=== PATIENT | male | born 1980 | race Caucasian/White ===

== ENCOUNTER 2017-11-01 15:29 | Emergency (ER) | payer SELFPAY ==
[~2017-11-01 15:29] MED LIST: IBUP-232 PO; PENI500T PO
[2017-11-01 15:36] VITALS: BP 126/80; PULSE 69; RESP 18; TEMP 97.9; O2SAT 98
[2017-11-01] MEDS ORDERED: PROPARACAINE HCL 0.5% OPHT SOLN 15 ML BTL EACH EYE ONE (16:30)
--- NOTE | 2017-11-01 17:09 | PD ---
HPI Chief Complaint: Eye Problems/Injury Time Seen by Provider: 16:26 Travel History International Travel<30 days: No Contact w/Intl Traveler<30days: No Traveled to known affect area: No History of Present Illness HPI 37-year-old male here with foreign body sensation in left eye since yesterday. Patient reports he was cutting a hole through drywall when he felt something fly into his right eye. He irrigated the eye with water but the foreign body sensation remaining. He presents here today for evaluation. He denies eye pain , visual changes. Symptom severity is moderate. No alleviating factors. PFSH Past Medical History Anemia: Yes Asthma: Yes (as a child) Tetanus Vaccination: < 5 Years Influenza Vaccination: No Past Surgical History Surgical History: No Previous Surgery Social History Alcohol Use: No Tobacco Use: Yes (1 ppd) Substance Use: No Allergies-Medications (Allergen,Severity, Reaction): Coded Allergies: azithromycin (Unverified Allergy, Unknown, 11/01/17) erythromycin base (Unverified Allergy, Unknown, 11/01/17) Reported Meds & Prescriptions Reported Meds & Active Scripts Active No Active Prescriptions or Reported Medications Review of Systems Except as stated in HPI: all other systems reviewed are Neg Physical Exam Narrative GENERAL: Alert male in no distress SKIN: Warm and dry. HEAD: Normocephalic. EYES: Mild injection to the left eye. PERRLA. EOMs intact. Corneas clear. Small pinpoint foreign body located at 10:00 over the iris. No fluorescein dye uptake. No hyphema. Visual acuity 20/20 left eye, 20/20 right eye, 20/20 both eyes NECK: Supple, trachea midline. Data Data Last Documented VS Vital Signs Date Time Temp Pulse Resp B/P (MAP) Pulse Ox O2 Delivery O2 Flow Rate FiO2 11/01/17 15:36 97.9 69 18 126/80 (95) 98 Orders Orders Proparacaine 0.5% Opth Soln (Alcaine 0.5 (11/01/17 16:30) Ciprofloxacin 0.3% Opth Oint (Ciloxan 0. (11/01/17 17:15) MDM Medical Decision Making Medical Screen Exam Complete: Yes Emergency Medical Condition: Yes Differential Diagnosis Corneal foreign body, corneal abrasion, corneal ulcer Narrative Course 37-year-old male with foreign body sensation in the left eye after drywall debris flew into the eye while at work. On exam he has a small pinpoint foreign body located at 10:00 over the iris of the left eye. No change in visual acuity. No pain in the eye. The foreign body was easily removed with cotton swab tip. Patient tolerated procedure well. He had normal visual acuity postprocedure. Patient is uninsured. He was offered a mandatory referral request for which she declined. He was then instructed to return to the ER and 1-2 days for recheck of the eye he agrees this plan Diagnosis Primary Impression: Corneal FB (foreign body) Qualified Codes: T15.02XA - Foreign body in cornea, left eye, initial encounter Referrals: Sex Worker Or Escort Additional Instructions: Use the antibiotic ointment/drops as directed. Return for follow-up of the eye in 1-2 days. Follow-up with the new autos delivery driver. Scripts No Active Prescriptions or Reported Meds Disposition: 01 DISCHARGE HOME Condition: Stable Angélica Cameron Nov 01, 2017 17:09
[2017-11-01] MEDS ORDERED: CIPROFLOXACIN 0.3% OPTH OINT 3.5 GM TUBO EACH EYE ONE (17:15)
== END 2017-11-01 17:47 | disposition home or self-care (01) ==
LOC: PHED 15:29 → PHEFT 17:47
DX: T15.02XA Foreign body in cornea, left eye, initial encounter (principal); W20.8XXA Other cause of strike by thrown, projected or falling object, initial encounter; Y93.H3 Activity, building and construction; Y99.0 Civilian activity done for income or pay
CPT/HCPCS: 99283

== ENCOUNTER 2018-04-20 11:20 | Emergency (ER) | payer SELFPAY ==
[~2018-04-20] VITALS: Ht 162.6 cm; Wt 51.0 kg
[2018-04-20 11:26] VITALS: BP 111/71; PULSE 64; RESP 16; TEMP 97.9; O2SAT 98
--- NOTE | 2018-04-20 11:57 | PD ---
HPI Chief Complaint: ENT Complaint Time Seen by Provider: 11:28 Travel History International Travel<30 days: No Contact w/Intl Traveler<30days: No Traveled to known affect area: No History of Present Illness HPI 38-year-old male presents to the emergency room for evaluation of right ear pain and decreased hearing that started abruptly when he woke up this morning. Pain is moderate, 5/10. He has not taken anything for symptoms. He denies any associated cough, congestion, or sore throat. No chronic medical conditions or daily medications. PFSH Past Medical History Anemia: Yes Asthma: Yes (as a child) Diminished Hearing: No Influenza Vaccination: No Social History Alcohol Use: No Tobacco Use: Yes (1 ppd) Substance Use: No Allergies-Medications (Allergen,Severity, Reaction): Coded Allergies: azithromycin (Unverified Allergy, Unknown, 04/20/18) erythromycin base (Unverified Allergy, Unknown, 04/20/18) Reported Meds & Prescriptions Reported Meds & Active Scripts Active Amoxicillin 500 Mg Tab 500 Mg PO BID 7 Days Review of Systems Except as stated in HPI: all other systems reviewed are Neg Physical Exam Narrative GENERAL: Well-nourished, well-developed patient. SKIN: Focused skin assessment warm/dry. HEAD: Normocephalic. EYES: No scleral icterus. No injection or drainage. EARS: Bilateral pinnae and external canals appear within normal limits. Right tympanic membrane cannot be visualized because of cerumen impaction. Left tympanic membrane is unremarkable. NECK: Supple, trachea midline. No JVD or lymphadenopathy. CARDIOVASCULAR: Regular rate and rhythm without murmurs, gallops, or rubs. RESPIRATORY: Breath sounds equal bilaterally. No accessory muscle use. Data Data Last Documented VS Vital Signs Date Time Temp Pulse Resp B/P (MAP) Pulse Ox O2 Delivery O2 Flow Rate FiO2 04/20/18 11:26 97.9 64 16 111/71 (84) 98 Orders Orders Ear Irrigation (04/20/18 11:30) [facility] Medical Decision Making Medical Screen Exam Complete: Yes Emergency Medical Condition: Yes Medical Record Reviewed: Yes Differential Diagnosis Cerumen impaction, otitis media, otitis externa Narrative Course 38-year-old male presents to the emergency room for evaluation of right ear pain and decreased hearing for the past day. No associated symptoms. No fevers. States symptoms started abruptly upon waking. Physical exam reveals cerumen impaction of the right ear the cotton program technician removed cerumen with hydrogen peroxide and warm water flushing. Tympanic membrane is mildly erythematous without effusion. Patient will be treated empirically with amoxicillin. Told to follow-up with her primary care physician or return for worsening symptoms. He understands and agrees to plan. Diagnosis Primary Impression: Right otitis media Qualified Codes: H66.001 - Acute suppurative otitis media without spontaneous rupture of ear drum, right ear Additional Impressions: Cerumen impaction Qualified Codes: H61.21 - Impacted cerumen, right ear K02.9 Referrals: Primary Care Physician Additional Instructions: Rest and drink plenty of fluids. Take amoxicillin as directed, until gone. Follow up with a primary care physician. Return to emergency room for worsening symptoms, as discussed. Med/Other Pt SpecificInfo: Prescription(s) given Scripts Amoxicillin (Amoxicillin) 500 Mg Tab 500 MG PO BID for Infection for 7 Days, #14 TAB 0 Refills Prov: Maxi Lehman MD 04/20/18 Disposition: 01 DISCHARGE HOME Condition: Stable Bettina Thomas April 20, 2018 11:57
[2018-04-20] MEDS ORDERED: AMOX500T PO (12:13)
== END 2018-04-20 12:28 | disposition home or self-care (01) ==
LOC: PHEFT 11:20
DX: H66.001 Acute suppurative otitis media without spontaneous rupture of ear drum, right ear (principal); H61.21 Impacted cerumen, right ear; J45.909 Unspecified asthma, uncomplicated; D64.9 Anemia, unspecified; Z72.0 Tobacco use
CPT/HCPCS: 99283